=== PATIENT | male | born 1990 | race Two or more races ===

== ENCOUNTER 2022-10-21 07:08 | Inpatient (IN) | payer OTHER ==
[~2022-10-21] VITALS: Ht 193 cm; Wt 88.5 kg
[~2022-10-21 07:08] MED LIST: [UNRECOGNIZED DRUG - CODE] PO
== END 2022-10-22 13:19 | disposition home or self-care (01) | DRG 627 ==
LOC: CIR.AMB 07:08 → SURH 16:19
PROVIDERS: ADMIT Otolaryngology; ATTEND Otolaryngology
PROC: 0GTK0ZZ Resection of Thyroid Gland, Open Approach (ICD-10-PCS; principal; 2022-10-21 08:30)
DX: E05.00 Thyrotoxicosis with diffuse goiter without thyrotoxic crisis or storm (principal); Z20.822 Contact with and (suspected) exposure to COVID-19